=== PATIENT | male | born 1985 | race African-American/Black ===

== ENCOUNTER 2017-08-03 01:17 | Inpatient (IN) | payer SELFPAY ==
[2017-08-03] VITALS (7 sets, daily range): BP systolic 102–119; BP diastolic 59–81; PULSE 61–82; RESP 16–20; TEMP 96.9–97.8; O2SAT 96–100
--- NOTE | 2017-08-03 01:36 | PD ---
HPI Chief Complaint: SORE THROAT Time Seen by Provider: 01:22 Travel History International Travel<30 days: No Contact w/Intl Traveler<30days: No Traveled to known affect area: No History of Present Illness HPI Patient is transferred over from Dr. Bonnie Chavez from [facility]. Patient complains of 2-3 days history of sore throat and a fever to 102 , presented to the hospital and for further care. Dr. Bonnie Chavez evaluated the patient did blood work CT scan and discuss the patient with [facility] as well as early childhood specialist for transfer. PFSH Social History Tobacco Use: No Allergies-Medications (Allergen,Severity, Reaction): Coded Allergies: No Known Allergies (Unverified , 08/03/17) Reported Meds & Prescriptions Reported Meds & Active Scripts Active Review of Systems Except as stated in HPI: all other systems reviewed are Neg General / Constitutional: Positive: Fever Eyes: No: Visual changes HENT: Positive: Sore Throat Cardiovascular: No: Chest Pain or Discomfort Respiratory: No: Shortness of Breath Gastrointestinal: No: Abdominal Pain Genitourinary: No: Dysuria Musculoskeletal: No: Pain Skin: No Rash Neurologic: No: Weakness Psychiatric: No: Depression Endocrine: No: Polydipsia Hematologic/Lymphatic: No: Easy Bruising Physical Exam Narrative GENERAL: SKIN: Warm and dry. HEAD: Atraumatic. Normocephalic. EYES: Pupils equal and round. No scleral icterus. No injection or drainage. ENT: No nasal bleeding or discharge. Mucous membranes pink and moist. Bilateral tonsillitis notedly however left-sided peritonsillar abscess noted. No stridor no wheezing NECK: Trachea midline. No JVD. Bilateral lymphadenopathy cervical CARDIOVASCULAR: Regular rate and rhythm. RESPIRATORY: No accessory muscle use. Clear to auscultation. Breath sounds equal bilaterally. GASTROINTESTINAL: Abdomen soft, non-tender, nondistended. Hepatic and splenic margins not palpable. MUSCULOSKELETAL: Extremities without clubbing, cyanosis, or edema. No obvious deformities. NEUROLOGICAL: Awake and alert. No obvious cranial nerve deficits. Motor grossly within normal limits. Five out of 5 muscle strength in the arms and legs. Normal speech. PSYCHIATRIC: Appropriate mood and affect; insight and judgment normal. Data Data Last Documented VS Vital Signs Date Time Temp Pulse Resp B/P (MAP) Pulse Ox O2 Delivery O2 Flow Rate FiO2 08/03/17 01:35 16 08/03/17 01:33 97.8 82 107/77 (87 98 Room Air Orders Orders Admit Order (Ed Use Only) (08/03/17 01:37) Clindamycin 600 Mg/Ns Premix (Cleocin 60 (08/03/17 02:00) MDM Medical Decision Making Medical Screen Exam Complete: Yes Emergency Medical Condition: Yes Medical Record Reviewed: Yes Differential Diagnosis Pharyngitis versus peritonsillar abscess versus Narrative Course According to evaluation patient was noted to have an 18,000 white count on blood work with a 72% neutrophilia electrolyte abnormalities were not noted on transfer blood work CT soft tissue neck shows left-sided tonsillitis with left- sided peritonsillar abscess, with mild reactive lymphadenopathy. Patient was given clindamycin Solu-Medrol and Dr. Chavez discussed case with Dr. Morales from [facility] and also with Dr. Marquez ENT patient was agreed to be admitted. Upon arrival there is no additional treatment needed and patient can be admitted directly to [facility]. Of note the patient is able to tolerate his own secretions, no stridor, no wheezing, and normal pulse ox of 98% on room air without any additional need for supplemental oxygen. Patient also has his normal voice and does not have any DUCK like PHONATION Diagnosis Primary Impression: Left peritonsillar abscess Admitting Information Admitting Physician Requests: Observation Scripts Methylprednisolone Dosepak (Medrol Dosepak) 4 Mg Dspk 4 MG PO DIRECTED, #1 DSPK 0 Refills Per Pharmacist direction Prov: Heath Chavez MD 08/04/17 Clindamycin (Clindamycin) 300 Mg Cap 300 MG PO TID for Infection for 14 Days, #42 CAP 0 Refills Prov: Heath Chavez MD 08/04/17 aBshir Mckeon MD Aug 03, 2017 01:36
[2017-08-03] MEDS ORDERED: CLINDAMYCIN 600 MG/NS PREMIX 50 ML IV ONE (02:00)
[2017-08-03] MEDS: DEXAMETHASONE SOD PHOS 4 MG/ML VIAL IV PUSH SCH ×5 (02:15→21:18)
[2017-08-03] MEDS ORDERED: SODIUM CHLORIDE 0.9% FLUSH 10 ML FLUSH IV FLUSH PRN (02:15)
[2017-08-03] MEDS ORDERED: NALOXONE HCL 0.4 MG/ML AMP IV PUSH PRN (02:15)
[2017-08-03] MEDS: SODIUM CHLOR 0.9% 1000 ML INJ 1,000 ML IV SCH ×3 (02:46→22:07)
--- NOTE | 2017-08-03 03:21 | HHI.HP ---
[facility] Primary Care Physician No Primary Care Physician Admission Diagnosis PERITONSILLAR ABSCESS Diagnoses: Chief Complaint: painful swallowing Travel History International Travel<30 Days: No Contact w/Intl Traveler <30 Da: No Traveled to Known Affected Are: No History of Present Illness 32 y/o male with no medical history was sent from [facility] for evaluation of a peritonsillar abscess. Patient states he has had a sore throat for the last 4 days and at work yesterday he was not feeling well and developed a 102 fever so he went to the ED. He states it is uncomfortable to swallow liquids but he denies any severe pain. He also denies any chest pain, or sob. Review of Systems Except as stated in HPI: all other systems reviewed are Neg Past Family Social History Past Medical History Patient denies any medical history Past Surgical History Patient denies any surgical history Reported Medications Reported Meds & Active Scripts Active No Active Prescriptions or Reported Medications Allergies: Coded Allergies: No Known Allergies (Unverified , 08/03/17) Active Ordered Medications Current Medications Medications (Trade) Dose Ordered Sig/Iliana Route Start Time Stop Time Status Last Admin Sodium Chloride 1,000 ml @ 100 mls/hr Q10H IV 08/03/17 02:07 08/03/17 02:46 (NS Flush) 2 ml UNSCH PRN IV FLUSH 08/03/17 02:15 (NS Flush) 2 ml BID IV FLUSH 08/03/17 09:00 (Narcan Inj) 0.4 mg UNSCH PRN IV PUSH 08/03/17 02:15 (Decadron Inj) 10 mg Q8HR IV PUSH 08/03/17 02:15 08/03/17 02:15 (Protonix Inj) 40 mg Q24H IV PUSH 08/03/17 09:00 Clindamycin/ Sodium Chloride 50 ml @ 100 mls/hr Q8H IV 08/03/17 10:00 Family History Mom and dad: HTN Social History Tobacco use: Denies Alcohol use: Rarely Illicit drug use: Marijuana Physical Exam Vital Signs Vital Signs Date Time Temp Pulse Resp B/P (MAP) Pulse Ox O2 Delivery O2 Flow Rate FiO2 08/03/17 01:35 16 08/03/17 01:33 97.8 82 16 107/77 (87) 98 Room Air Physical Exam GENERAL: This is a well-nourished, well-developed patient, in no apparent distress. SKIN: No rashes, ecchymoses or lesions. Cool and dry. HEAD: Atraumatic. Normocephalic. EYES: Pupils equal round and reactive. ENT: Nose without bleeding, purulent drainage or septal hematoma. Throat with erythema, left tonsillar hypertrophy. Uvula midline. Airway patent. NECK: Trachea midline. Left lymphadenopathy. left sided tenderness. CARDIOVASCULAR: Regular rate and rhythm without murmurs, gallops, or rubs. RESPIRATORY: Clear to auscultation. Breath sounds equal bilaterally. No wheezes , rales, or rhonchi. GASTROINTESTINAL: Abdomen soft, non-tender, nondistended. MUSCULOSKELETAL: Extremities without clubbing, cyanosis, or edema. No joint tenderness, effusion, or edema noted. No calf tenderness. NEUROLOGICAL: Awake and alert.Motor and sensory grossly within normal limits. Normal speech. Caprini VTE Risk Assessment Caprini VTE Risk Assessment: No/Low Risk (score <= 1) Caprini Risk Assessment Model Point Value = 1 Point Value = 2 Point Value = 3 Point Value = 5 Age 41-60 Minor surgery BMI > 25 kg/m2 Swollen legs Varicose veins or History of unexplained or recurrent spontaneous Oral contraceptives or hormone replacement Sepsis (< 1 month) Serious lung disease, including pneumonia (< 1 month) Abnormal pulmonary function Acute myocardial infarction Congestive heart failure (< 1 month) History of inflammatory bowel disease Medical patient at bed rest Age 61-74 Arthroscopic surgery Major open surgery (> 45 min) Laparoscopic surgery (> 45 min) Malignancy Confined to bed (> 72 hours) Immobilizing plaster cast Central venous access Age >= 75 History of VTE Family history of VTE Factor V Leiden Prothrombin [id number] Lupus anticoagulant Anticardiolipin antibodies Elevated serum homocysteine Heparin-induced thrombocytopenia Other congenital or acquired thrombophilia Stroke (< 1 month) Elective arthroplasty Hip, pelvis, or leg fracture Acute spinal cord injury (< 1 month) Prophylaxis Regimen Total Risk Factor Score Risk Level Prophylaxis Regimen 0-1 Low Early ambulation 2 Moderate Order ONE of the following: *Sequential Compression Device (SCD) *Heparin 5000 units SQ BID 3-4 Higher Order ONE of the following medications: *Heparin 5000 units SQ TID *Enoxaparin/Lovenox 40 mg SQ daily (WT < 150 kg, CrCl > 30 mL/min) *Enoxaparin/Lovenox 30 mg SQ daily (WT < 150 kg, CrCl > 10-29 mL/min) *Enoxaparin/Lovenox 30 mg SQ BID (WT < 150 kg, CrCl > 30 mL/min) AND/OR *Sequential Compression Device (SCD) 5 or more Highest Order ONE of the following medications: *Heparin 5000 units SQ TID (Preferred with Epidurals) *Enoxaparin/Lovenox 40 mg SQ daily (WT < 150 kg, CrCl > 30 mL/min) *Enoxaparin/Lovenox 30 mg SQ daily (WT < 150 kg, CrCl > 10-29 mL/min) *Enoxaparin/Lovenox 30 mg SQ BID (WT < 150 kg, CrCl > 30 mL/min) AND *Sequential Compression Device (SCD) Assessment and Plan Problem List: (1) Peritonsillar abscess ICD Code: J36 - Peritonsillar abscess Status: Acute (2) Leukocytosis ICD Code: D72.829 - Elevated white blood cell count, unspecified Assessment and Plan 32 y/o male with no medical history was sent from [facility] for evaluation of a peritonsillar abscess. Peritonsillar abscess CT neck down at [facility] reviewed and shows left sided tonsillitis with left side peritonsillar abscess with airway displacement to the right. -Consult ENT -IV antibiotics: Clindamycin -Decadron IV Q8hr -Protonix IV -NPO Leukocytosis, WBC at [facility] 18.5 -Cont antibiotics as above -CBC in AM DVT prophylaxis: SCDs Discussed Condition With Patient and RN Physician Certification 2 Midnight Certification Type: Admission for Inpatient Services Order for Inpatient Services The services are ordered in accordance with Medicare regulations or non- Medicare payer requirements, as applicable. In the case of services not specified as inpatient-only, they are appropriately provided as inpatient services in accordance with the 2-midnight benchmark. Estimated LOS (days): 2 days is the estimated time the patient will need to remain in the hospital, assuming treatment plan goals are met and no additional complications. Post-Hospital Plan: Home Problem Qualifiers (1) Leukocytosis: Qualified Codes: D72.829 - Elevated white blood cell count, unspecified Dayan Romero Aug 03, 2017 03:21
[2017-08-03] MEDS: PANTOPRAZOLE SODIUM 40 MG VIAL IV PUSH SCH (10:15)
[2017-08-03] MEDS: SODIUM CHLORIDE 0.9% FLUSH 10 ML FLUSH IV FLUSH SCH ×2 (10:15→21:07)
[2017-08-03] MEDS: CLINDAMYCIN 900 MG/NS PREMIX 50 ML IV SCH ×2 (10:15→18:00)
[2017-08-04] VITALS (7 sets, daily range): BP systolic 112–128; BP diastolic 66–87; PULSE 59–86; RESP 18; TEMP 96–98.6; O2SAT 95–100
[2017-08-04] MEDS: SODIUM CHLOR 0.9% 1000 ML INJ 1,000 ML IV SCH ×2 (00:07→09:15)
[2017-08-04] MEDS: CLINDAMYCIN 900 MG/NS PREMIX 50 ML IV SCH ×3 (00:07→18:01)
[2017-08-04] MEDS: DEXAMETHASONE SOD PHOS 4 MG/ML VIAL IV PUSH SCH ×2 (04:31→14:00)
--- NOTE | 2017-08-04 07:06 | MB ---
cc: CLEMENT MARQUEZ MD DATE OF CONSULTATION 08/03/2017 CHIEF COMPLAINT Left peritonsillar abscess. HISTORY The patient is a pleasant 32-year-old male with a history of left peritonsillar abscess noted on CT scan prior to transfer to [facility]. He has noted rapid improvement today with antibiotics and clindamycin. He is able to tolerate p.o.'s well and asking for food and drink. He is not having any shortness of breath and is not having any pain at all currently. PHYSICAL EXAM On examination, the patient is well-developed. HEAD, EYES, EARS, NOSE, AND THROAT: Uvula is currently midline and he has minimal tonsillar erythema. NECK: Mild adenopathy. Flexible fiberoptic laryngoscopy shows airway to be widely patent. ASSESSMENT Resolving peritonsillar abscess. RECOMMENDATIONS I recommend the patient to continue his antibiotics and steroids overnight. Recommend the patient to advance diet to soft diet tonight and to advance to a full diet tomorrow. The patient should be able to leave tomorrow evening after the 06:00 p.m. dosing of antibiotics and medicines. Recommend the patient to be discharged after the 6:00 p.m. dosing if he continues his current tract tomorrow evening. On discharge, the patient should have a Medrol Dosepak, as well as clindamycin 300 mg by mouth three times a day for 14 days. The patient can follow up with us as an outpatient in one week with ENT. Clement Marquez MD CCP/DJL /8:00 PM /6:55 AM
[2017-08-04 07:17] LABS: AUTOMATED NEUTROPHIL # 16.1 TH/MM3 (1.8-7.7); LYMPH % 3.5 % (9.0-44.0); LYMPHOCYTE # 0.6 TH/MM3 (1.0-4.8); MEAN CELL VOLUME 92.5 FL (80.0-100.0); MEAN CORPUSCULAR HEMOGLOBIN 30.8 PG (27.0-34.0); MEAN CORPUSCULAR HGB CONC 33.2 % (32.0-36.0); MEAN PLATELET VOLUME 10.5 FL (7.0-11.0); MONO % 4.6 % (0.0-8.0); MONOCYTE # 0.8 TH/MM3 (0-0.9); NEUT % 91.9 % (16.0-70.0); PLATELET COUNT 249 TH/MM3 (150-450); RED BLOOD COUNT 4.21 MIL/MM3 (4.50-5.90); RED CELL DISTRIBUTION WIDTH 14.2 % (11.6-17.2); WHITE BLOOD COUNT 17.5 TH/MM3 (4.0-11.0)
[2017-08-04 07:40] LABS: BICARBONATE 26.6 MEQ/L (21.0-32.0); CREATININE 0.83 MG/DL (0.60-1.30)
[2017-08-04] MEDS: PANTOPRAZOLE SODIUM 40 MG VIAL IV PUSH SCH (08:30)
[2017-08-04] MEDS: SODIUM CHLORIDE 0.9% FLUSH 10 ML FLUSH IV FLUSH SCH (08:32)
[2017-08-04] MEDS ORDERED: MEDR4PAK PO (16:02)
[2017-08-04] MEDS ORDERED: CLIN300C5 PO (16:02)
[2017-08-04] MEDS ORDERED: NORC5TAB PO (16:04)
--- NOTE | 2017-08-04 16:07 | HHI.DS ---
Discharge Summary Admission Date Aug 03, 2017 at 02:45 Discharge Date: Aug 04, 2017 Admitting Diagnosis PERITONSILLAR ABSCESS (1) Peritonsillar abscess ICD Code: J36 - Peritonsillar abscess Status: Acute (2) Leukocytosis ICD Code: D72.829 - Elevated white blood cell count, unspecified Procedures none Brief History - From Admission 32 y/o male with no medical history was sent from [facility] for evaluation of a peritonsillar abscess. Patient states he has had a sore throat for the last 4 days and at work yesterday he was not feeling well and developed a 102 fever so he went to the ED. He states it is uncomfortable to swallow liquids but he denies any severe pain. He also denies any chest pain, or sob. CBC/BMP: 08/04/17 0607 08/04/17 0607 Significant Findings Laboratory Tests Test 08/04/17 06:07 White Blood Count 17.5 TH/MM3 (4.0-11.0) Red Blood Count 4.21 MIL/MM3 (4.50-5.90) Neutrophils (%) (Auto) 91.9 % (16.0-70.0) Lymphocytes (%) (Auto) 3.5 % (9.0-44.0) Neutrophils # (Auto) 16.1 TH/MM3 (1.8-7.7) Lymphocytes # (Auto) 0.6 TH/MM3 (1.0-4.8) Platelet Morphology Comment ENLARGED (NORMAL) Random Glucose 116 MG/DL (74-106) Chloride Level 108 MEQ/L (98-107) Hospital Course 32-year-old male who presented to the ER 2 days ago with inability to swallow and severe throat pain. He was diagnosed with peritonsillar abscess and was given IV doses of steroids as well as IV clindamycin. ENT saw him and recommended 1 more dose of the IV clindamycin then transitioned to p.o. clindamycin and a steroid Dosepak included with discharge home today. Patient is still requiring pain medications but his throat looks much improved and he is requesting solid food. Pt Condition on Discharge: Good Discharge Disposition: Discharge Home Discharge Time: <= 30 minutes Discharge Instructions DIET: Follow Instructions for: As Tolerated, No Restrictions Activities you can perform: Regular-No Restrictions Heath Chavez MD Aug 04, 2017 16:07
== END 2017-08-04 19:24 | disposition home or self-care (01) | DRG 153 ==
LOC: NEPC 01:17 → NEDA 02:03 → OBSVTOIN 02:45 → NEDA 03:27 → N07B 11:53
PROVIDERS: ADMIT Family Medicine; ATTEND Family Medicine
DX: J36 Peritonsillar abscess (principal); F12.90 Cannabis use, unspecified, uncomplicated
CPT/HCPCS: 80048; 85025; C9113; J1100; J7030